=== PATIENT | male | born 1985 | race Caucasian/White ===

== ENCOUNTER 2020-05-29 20:00 | Outpatient (CLI) | payer OTHER, SELFPAY | END 2020-05-29 20:01 | disposition home or self-care (01) | LOC: SLEEP 06-01 08:57 | PROVIDERS: Family Provider Family Medicine; PCP Family Medicine; Visit Provider Nurse Practitioner Family | DX: G47.33 Obstructive sleep apnea (adult) (pediatric) (principal) | CPT/HCPCS: 95810 ==

== ENCOUNTER 2020-07-13 20:00 | Outpatient (CLI) | payer OTHER, SELFPAY | END 2020-07-13 20:01 | disposition home or self-care (01) | LOC: SLEEP 07-14 08:54 | PROVIDERS: Family Provider Family Medicine; PCP Family Medicine; Visit Provider Nurse Practitioner Family | DX: G47.33 Obstructive sleep apnea (adult) (pediatric) (principal) | CPT/HCPCS: 95811 ==

== ENCOUNTER → 2021-05-23 11:31 | Outpatient (BNVA) | payer OTHER, SELFPAY | PROVIDERS: Family Provider Family Medicine; PCP Family Medicine; Visit Provider Nurse Practitioner | DX: J01.90 Acute sinusitis, unspecified (principal); B96.89 Other specified bacterial agents as the cause of diseases classified elsewhere; R05 Cough | CPT/HCPCS: 87426 ==

== ENCOUNTER 2022-11-24 12:36 | Emergency (ER) | payer OTHER, SELFPAY ==
--- NOTE | 2022-11-24 12:39 | XRR_ITS ---
PROCEDURE INFORMATION: Exam: XR Left Femur Exam date and time: 11/24/2022 12:48 PM Age: 37 years old Clinical indication: Injury or trauma; Fall; Blunt trauma; Thigh or upper leg; Injury details: Left midshaft femur pain he slipped while he was working felt a popping sensation. TECHNIQUE: Imaging protocol: Radiologic exam of the left femur. Views: 2 views. COMPARISON: No relevant prior studies available. FINDINGS: Bones/joints: Mild superolateral femoroacetabular joint space narrowing. Alignment is normal. The visible portion of the pelvis and femur are intact. Soft tissues: Visible soft tissues are unremarkable. XR/XR femur LT min 2V* [id number] IMPRESSION: No acute findings.
--- NOTE | 2022-11-24 12:39 | XRR_ITS ---
PROCEDURE INFORMATION: Exam: XR Left Knee Exam date and time: 11/24/2022 12:55 PM Age: 37 years old Clinical indication: Injury or trauma; Fall; Blunt trauma; Knee; Injury details: Left midshaft femur pain he slipped while he was working felt a popping sensation. TECHNIQUE: Imaging protocol: Radiologic exam of the left knee. Views: 3 views. COMPARISON: CR XR femur LT min 2V* [id number] 11/24/2022 12:48 PM FINDINGS: Bones/joints: Alignment is normal. Joint spaces are preserved. There is mild chondrocalcinosis in the medial femorotibial compartment. No acute fracture. Obliquity on the lateral view limits assessment for joint effusion. Soft tissues: Normal. XR/XR knee LT 3V* [id number] IMPRESSION: 1. No acute findings. 2. Limited assessment for joint effusion.
[2022-11-24 12:43] VITALS: BP 169/98; PULSE 106; RESP 22; TEMP 37; O2SAT 94; BMI 30.7
--- NOTE | 2022-11-24 12:48 | ED_ITS ---
HPI - Extremity Problem General: Chief complaint: Extremity Injury, Lower Stated complaint: L FEMUR PAIN Time Seen by Provider: 11/24/22 12:37 Source: patient Mode of arrival: EMS History of Present Illness: 37-year-old male presents emergency room complaining of left midshaft femur pain he slipped while he was working felt a popping sensation. Previously he has had a knee injury on the left knee and had arthroscopy done when he was 16 years old no other injuries today. Even with attempts to wiggle his toes he has worsening pain. He was given Dilaudid in route. MD Complaint: extremity pain Onset (ago): minute(s) Pain Consistency: constant Location: left and lower extremity (Femur) Quality: sharp Radiation: distal Relieving factors: nothing Exacerbating factors: nothing Associated symptoms: Deny arthralgias, chest pain, fever(s), myalgias, rash, short of breath or other Review of Systems Const: Denies: fever(s), chills or fatigue ENMT: Denies: throat pain, ear or mastoid pain, nasal discharge or nasal congestion Card: Denies: chest pain Resp: Denies: dyspnea, productive cough or non-productive cough GI: Denies: abdominal pain, nausea, vomiting, hematemesis, coffee ground emesis, diarrhea, constipation, bloating, hematochezia or melena : Denies: flank pain, dysuria, urinary frequency or urinary urgency Musc: Reports: extremity pain Skin/Breast: Denies: rash PFSH ED PFSH: Social History Smoking and tobacco status: never smoked Alcohol intake: never Physical Exam Const: GENERAL APPEARANCE: cooperative and comfortable ALENA ENTATION/CONSCIOUSNESS: Yes awake, Yes oriented to person, Yes oriented to place and Yes oriented to time HENMT: COMMON NORMALS: normocephalic, atraumatic and hearing grossly normal bilaterally HEAD & SCALP: normocephalic and atraumatic Resp: COMMON NORMALS: normal respiratory effort, No retractions, No use of accessory muscles and clear to auscultation bilaterally AUSCULTATION: clear to auscultation bilaterally Cardio: COMMON NORMALS: regular rate, regular rhythm and No murmurs present (Cardio) RATE: regular rate RHYTHM: regular rhythm GI: COMMON NORMALS: Soft to palpation and No hepatosplenomegaly present AUSCULTATION: Yes normoactive bowel sounds PALPATION: Yes Soft to palpation, No Tenderness to palpation present (GI), No Guarding due to palpation present (GI) and Yes No hepatosplenomegaly present Extremity: COMMON NORMALS: normal to inspection, capillary refill normal, no clubbing, cyanosis or edema, no calf tenderness and no pedal edema Neuro: SENSORIUM/ORIENTATION: Yes oriented to person, Yes oriented to place and Yes oriented to time Skin: COMMON NORMALS: no rashes or lesions noted GENERAL SKIN EXAM: no rashes or lesions noted Course Vital Signs: Vital signs: Vital Signs Temperature 98.6 F 11/24/22 12:43 Pulse Rate 94 11/24/22 14:27 Respiratory Rate 22 H 11/24/22 12:43 Blood Pressure 157/90 11/24/22 14:27 Pulse Oximetry 98 11/24/22 14:27 Oxygen Delivery Me thod 11/24/22 12:43 MDM - Extremity (Nontraumatic) Medical Decision Making Labs and imaging reviewed discussed Dr. Sheriff. I discussed Dr. Sheriff concerned about hamstring muscle pull prior to getting the ultrasound after discussion we decided ultrasound would probably likely be the best way to image in the emergency room. There is no sign of fluid collection at this time we discussed again after the ultrasound is done. I think he just strained it on think he tore the muscle he is feeling somewhat better after pain medications will discharge home with diclofenac muscle relaxer knee immobilizer and crutches have him follow-up with his primary care doctor if it does not improve may need an MRI for further delineation for injury. Medical Records I reviewed the patient's medical records. Lab Data I reviewed the patient's lab results. Radiology Impressions Femur X-Ray 11/24/22 12:39 IMPRESSION: No acute findings. Knee X-Ray 11/24/22 12:39 IMPRESSION: 1. No acute findings. 2. Limited assessment for joint effusion. Soft Tissue Ultrasound 11/24/22 13:10 IMPRESSION: Normal ultrasound LEFT anterior thigh in the area of pain. Consider MRI evaluation of the LEFT quadriceps muscles to evaluate for injury. This can be done on a nonurgent basis. Discharge Plan Discharge Patient Disposition: Home Clinical Impression: Hamstring muscle strain Condition: Stable Prescriptions: New diclofenac sodium 75 mg tablet,delayed release (DR/EC) 75 mg PO Q12H PRN (Reason: pain) Qty: 20 0RF tizanidine 4 mg tablet 4 mg PO Q6H PRN (Reason: muscle spasticity) Qty: 30 0RF Rx Instructions: do not exceed 3 doses per 24 hrs No Action citalopram 10 mg tablet 10 mg PO DAILY amlodipine 5 mg tablet 5 mg PO DAILY ropinirole 0.5 mg tablet 0.5 mg PO DAILY Discharge Orders: Discharge ED (Routine); Ordered 11/24/22 Ordered By: Gm Valdez Referrals: Kennedi Marin NP [Primary Care Provider] - Discharge Diet: Usual diet Discharge Activity: Limit activity as instructed Patient Instructions: Opioid Safety, Pain Management Activity Restrictions/Additional Instructions: You were seen today for pain in the left leg. Based on your exam and history and the imaging suspect you have a hamstring muscle strain. You are prescribed a muscle relaxer and diclofenac for pain. You can use ice on the muscle as well recommend nonweightbearing follow-up with your primary care doctor if not improving in the next several days. If symptoms persist you may need further imaging. Coding Level of Care Code ED See Wheeler for Susanne León
[2022-11-24] MEDS: morphine 4 mg/mL SDV 1 mL IVP (12:59)
[2022-11-24] MEDS: ondansetron 2 mg/ML SDV 2 mL 4 MG IVP (12:59)
[2022-11-24 13:05] VITALS: BP 155/98
--- NOTE | 2022-11-24 13:10 | US_ITS ---
WS: [id number] ULTRASOUND SOFT TISSUES LEFT thigh HISTORY: hamstring pain - L COMPARISON: Radiographs LEFT femur TECHNIQUE: 2-D and color Doppler imaging is submitted. Ultrasound is directed along the anterior thigh in the area of pain. No fluid collection or hematoma noted along the muscle bundles or fascial planes. Normal appearance of the soft tissues. US/US soft tissue/extremity [id number] IMPRESSION: Normal ultrasound LEFT anterior thigh in the area of pain. Consider MRI evaluation of the LEFT quadriceps muscles to evaluate for injury. This can be done on a nonurgent basis.
[2022-11-24] MEDS: orphenadrine 30 mg/mL Inj 2 mL 60 MG IVP (13:14)
[2022-11-24] MEDS: ketorolac 30 mg/mL INJ IVP (13:14)
[2022-11-24 14:27] VITALS: BP 157/90; PULSE 94; O2SAT 98
== END 2022-11-24 14:28 | disposition home or self-care (01) ==
PROVIDERS: Emergency Provider Family Medicine; PCP Nurse Practitioner Family
DX: S76.312A Strain of muscle, fascia and tendon of the posterior muscle group at thigh level, left thigh, initial encounter (principal); W01.0XXA Fall on same level from slipping, tripping and stumbling without subsequent striking against object, initial encounter
CPT/HCPCS: 73552; 73562; 76882; 96374; 96375; 99285; J1885; J2270; J2360; J2405